=== PATIENT | female | born 1970 | race African-American/Black ===

== ENCOUNTER 2022-11-06 21:00 | Inpatient (IN) | payer MEDICAID ==
[~2022-11-06] VITALS: Ht 157.5 cm; Wt 59.0 kg
[2022-11-06 21:00] VITALS: BP 104/72; PULSE 87; PULSE 88; RESP 18; RESP 20; TEMP 97.5
[~2022-11-06 21:00] MED LIST: CLON0.2T PO; HYDR25TA MT; METO-539 PO
[2022-11-06] MEDS ORDERED: SENNOSIDES 8.6MG TABLET PO PRN (23:45)
[2022-11-07] MEDS ORDERED: MAGNESIUM HYDROXIDE 400MG/5ML 30ML UDC PO PRN (00:15)
[2022-11-07] MEDS ORDERED: MAGNESIUM/ALUMINUM HYDROXIDE/SIMETHICONE 30ML UDC PO PRN (00:15)
[2022-11-07] MEDS ORDERED: BISACODYL 10MG SUPP PR PRN (00:15)
[2022-11-07] MEDS: SENNOSIDES 8.6MG TABLET PO SCH ×2 (00:15→21:45)
[2022-11-07] MEDS ORDERED: ACETAMINOPHEN 325MG TABLET PO PRN (00:15)
[2022-11-07] MEDS ORDERED: ONDANSETRON HCL 4MG/2ML INJ IV PRN (00:15)
[2022-11-07] MEDS ORDERED: IPRATROPIUM/ALBUTEROL 0.5-3(2.5)MG/3ML NEB HHN PRN (00:15)
[2022-11-07] MEDS: LEVETIRACETAM 500MG TABLET PO SCH ×3 (00:30→21:45)
[2022-11-07 06:44] LABS: BASOPHILS % 0.3 % (0.0-2.0); EOSINOPHILS % 2.4 % (0.0-5.0); HEMATOCRIT. 31.1 % (36.0-48.0); HEMOGLOBIN. 10.6 g/dL (12.0-16.0); MEAN CORPUSCULAR HEMOGLOBIN 35.5 pg (28.0-32.0); MEAN CORPUSCULAR VOLUME 104.3 fL (81.0-99.0); MEAN PLATELET VOLUME 10.3 fl (7.4-10.4); MONOCYTES % 11.2 % (2.0-8.0); NEUTROPHILS % 48.1 % (40.0-76.0); PLATELET 326 x1000/uL (130-400); RED BLOOD CELL COUNT 2.98 mill/uL (4.2-5.4); RED CELL DISTRIBUTION WIDTH 14.7 % (11.6-14.6)
[2022-11-07] MEDS: LANSOPRAZOLE 30MG DR CAPSULE PO SCH (06:44)
[2022-11-07] MEDS ORDERED: LANSOPRAZOLE 30MG DR CAPSULE NG SCH (07:00)
[2022-11-07 07:43] LABS: CHLORIDE 102 mEq/L (98-107)
[2022-11-07 08:00] VITALS: BP 104/67; PULSE 84; RESP 20; TEMP 97.4
[2022-11-07] MEDS: HYDRALAZINE HCL 25MG TABLET PO SCH (09:00)
[2022-11-07] MEDS: BACITRACIN 15GM TUBE TOP SCH ×2 (09:00→17:00)
[2022-11-07] MEDS: METOPROLOL TARTRATE 50MG TABLET PO SCH ×2 (09:00→21:46)
[2022-11-07] MEDS: ENOXAPARIN 40MG/0.4ML SYR SUBCUT SCH (09:00)
[2022-11-07] MEDS: POLYETHYLENE GLYCOL 3350 (17GM) 1 DOSE PACK PO SCH (09:00)
[2022-11-07] MEDS: LORATADINE 10MG TABLET PO SCH (09:31)
[2022-11-07] MEDS: MULTIVITAMINS,THER W-MINERALS TABLET PO SCH (09:31)
[2022-11-07 20:07] VITALS: BP 157/87; PULSE 94; RESP 20; TEMP 97.5
[2022-11-08] MEDS: LANSOPRAZOLE 30MG DR CAPSULE PO SCH (06:30)
[2022-11-08 08:00] VITALS: BP 110/86; PULSE 112; RESP 17; TEMP 97.6
[2022-11-08] MEDS: BACITRACIN 15GM TUBE TOP SCH ×2 (09:00→17:00)
[2022-11-08] MEDS: POLYETHYLENE GLYCOL 3350 (17GM) 1 DOSE PACK PO SCH (09:00)
[2022-11-08] MEDS: LEVETIRACETAM 500MG TABLET PO SCH ×2 (09:24→21:19)
[2022-11-08] MEDS: MULTIVITAMINS,THER W-MINERALS TABLET PO SCH (09:24)
[2022-11-08] MEDS: HYDRALAZINE HCL 25MG TABLET PO SCH (09:24)
[2022-11-08] MEDS: LORATADINE 10MG TABLET PO SCH (09:24)
[2022-11-08] MEDS: METOPROLOL TARTRATE 50MG TABLET PO SCH ×2 (09:24→21:00)
[2022-11-08] MEDS ORDERED: BISACODYL 10MG SUPP PR PRN (12:15)
[2022-11-08 20:25] VITALS: BP 108/69; PULSE 88; RESP 20; TEMP 97.2
[2022-11-08] MEDS: SENNOSIDES 8.6MG TABLET PO SCH (21:19)
[2022-11-09 08:00] VITALS: BP 110/70; PULSE 98; RESP 18; TEMP 97.7
[2022-11-09] MEDS: LORATADINE 10MG TABLET PO SCH (08:26)
[2022-11-09] MEDS: METOPROLOL TARTRATE 50MG TABLET PO SCH ×2 (08:26→21:00)
[2022-11-09] MEDS: LEVETIRACETAM 500MG TABLET PO SCH ×2 (08:26→21:12)
[2022-11-09] MEDS: HYDRALAZINE HCL 25MG TABLET PO SCH (08:26)
[2022-11-09] MEDS: POLYETHYLENE GLYCOL 3350 (17GM) 1 DOSE PACK PO SCH (08:27)
[2022-11-09] MEDS: MULTIVITAMINS,THER W-MINERALS TABLET PO SCH (08:31)
[2022-11-09] MEDS: FAMOTIDINE 20MG TABLET PO SCH ×2 (08:31→21:12)
[2022-11-09] MEDS: BACITRACIN 15GM TUBE TOP SCH ×2 (08:32→16:33)
[2022-11-09 20:00] VITALS: BP 108/66; PULSE 88; RESP 18; TEMP 97
[2022-11-09] MEDS: SENNOSIDES 8.6MG TABLET PO SCH (21:12)
[2022-11-10 08:00] VITALS: BP 111/65; PULSE 87; RESP 18; TEMP 97.4
[2022-11-10] MEDS: METOPROLOL TARTRATE 50MG TABLET PO SCH ×2 (09:00→21:19)
[2022-11-10] MEDS: HYDRALAZINE HCL 25MG TABLET PO SCH (09:00)
[2022-11-10] MEDS: POLYETHYLENE GLYCOL 3350 (17GM) 1 DOSE PACK PO SCH (09:02)
[2022-11-10] MEDS: FAMOTIDINE 20MG TABLET PO SCH ×2 (09:02→21:20)
[2022-11-10] MEDS: LEVETIRACETAM 500MG TABLET PO SCH ×2 (09:02→21:20)
[2022-11-10] MEDS: BACITRACIN 15GM TUBE TOP SCH ×2 (09:08→16:53)
[2022-11-10] MEDS: MULTIVITAMINS,THER W-MINERALS TABLET PO SCH (09:09)
[2022-11-10] MEDS: LORATADINE 10MG TABLET PO SCH (09:09)
[2022-11-10 20:00] VITALS: BP 117/82; PULSE 93; RESP 18; TEMP 98.2
[2022-11-10] MEDS: SENNOSIDES 8.6MG TABLET PO SCH (21:00)
[2022-11-11 08:00] VITALS: BP 117/74; PULSE 93; RESP 18; TEMP 97.3
[2022-11-11] MEDS: POLYETHYLENE GLYCOL 3350 (17GM) 1 DOSE PACK PO SCH (09:00)
[2022-11-11] MEDS: LORATADINE 10MG TABLET PO SCH (09:21)
[2022-11-11] MEDS: HYDRALAZINE HCL 25MG TABLET PO SCH (09:21)
[2022-11-11] MEDS: METOPROLOL TARTRATE 50MG TABLET PO SCH ×2 (09:21→20:45)
[2022-11-11] MEDS: FAMOTIDINE 20MG TABLET PO SCH ×2 (09:21→20:45)
[2022-11-11] MEDS: LEVETIRACETAM 500MG TABLET PO SCH ×2 (09:22→20:45)
[2022-11-11] MEDS: MULTIVITAMINS,THER W-MINERALS TABLET PO SCH (09:22)
[2022-11-11] MEDS: BACITRACIN 15GM TUBE TOP SCH ×2 (09:25→17:13)
[2022-11-11 20:00] VITALS: BP 116/70; PULSE 83; RESP 19; TEMP 97.7
[2022-11-11] MEDS: SENNOSIDES 8.6MG TABLET PO SCH (20:45)
[2022-11-11 21:35] VITALS: TEMP 98.1
[2022-11-12 08:00] VITALS: BP 104/65; PULSE 74; RESP 20; TEMP 97.4
[2022-11-12] MEDS: HYDRALAZINE HCL 25MG TABLET PO SCH (08:18)
[2022-11-12] MEDS: METOPROLOL TARTRATE 50MG TABLET PO SCH ×2 (08:18→22:03)
[2022-11-12] MEDS: MULTIVITAMINS,THER W-MINERALS TABLET PO SCH (08:21)
[2022-11-12] MEDS: FAMOTIDINE 20MG TABLET PO SCH ×2 (08:21→22:02)
[2022-11-12] MEDS: LEVETIRACETAM 500MG TABLET PO SCH ×2 (08:21→22:04)
[2022-11-12] MEDS: LORATADINE 10MG TABLET PO SCH (08:21)
[2022-11-12] MEDS: POLYETHYLENE GLYCOL 3350 (17GM) 1 DOSE PACK PO SCH (08:22)
[2022-11-12] MEDS: BACITRACIN 15GM TUBE TOP SCH ×2 (08:23→16:25)
[2022-11-12 20:00] VITALS: BP 112/72; PULSE 87; RESP 16; TEMP 97.3
[2022-11-12] MEDS: SENNOSIDES 8.6MG TABLET PO SCH (22:02)
[2022-11-13 08:00] VITALS: BP 110/66; PULSE 51; RESP 17; TEMP 97.5
[2022-11-13] MEDS: HYDRALAZINE HCL 25MG TABLET PO SCH (08:54)
[2022-11-13] MEDS: MULTIVITAMINS,THER W-MINERALS TABLET PO SCH (08:54)
[2022-11-13] MEDS: LORATADINE 10MG TABLET PO SCH (08:54)
[2022-11-13] MEDS: FAMOTIDINE 20MG TABLET PO SCH ×2 (08:54→21:24)
[2022-11-13] MEDS: LEVETIRACETAM 500MG TABLET PO SCH ×2 (08:54→21:23)
[2022-11-13] MEDS: POLYETHYLENE GLYCOL 3350 (17GM) 1 DOSE PACK PO SCH (08:55)
[2022-11-13] MEDS: BACITRACIN 15GM TUBE TOP SCH ×2 (08:55→16:38)
[2022-11-13] MEDS: METOPROLOL TARTRATE 50MG TABLET PO SCH ×2 (08:55→21:23)
[2022-11-13 20:00] VITALS: BP 111/66; PULSE 72; RESP 18; TEMP 97.7
[2022-11-13] MEDS: SENNOSIDES 8.6MG TABLET PO SCH (21:23)
[2022-11-14 08:00] VITALS: BP 97/56; PULSE 79; RESP 20; TEMP 97.5
[2022-11-14] MEDS: LORATADINE 10MG TABLET PO SCH (08:45)
[2022-11-14] MEDS: LEVETIRACETAM 500MG TABLET PO SCH ×2 (08:45→21:48)
[2022-11-14] MEDS: MULTIVITAMINS,THER W-MINERALS TABLET PO SCH (08:45)
[2022-11-14] MEDS: FAMOTIDINE 20MG TABLET PO SCH ×2 (08:45→21:48)
[2022-11-14] MEDS: HYDRALAZINE HCL 25MG TABLET PO SCH (08:46)
[2022-11-14] MEDS: METOPROLOL TARTRATE 50MG TABLET PO SCH ×2 (08:47→21:00)
[2022-11-14] MEDS: POLYETHYLENE GLYCOL 3350 (17GM) 1 DOSE PACK PO SCH (08:48)
[2022-11-14] MEDS: BACITRACIN 15GM TUBE TOP SCH ×2 (08:49→17:00)
[2022-11-14] MEDS: ENOXAPARIN 40MG/0.4ML SYR SUBCUT SCH (08:49)
[2022-11-14 20:00] VITALS: BP 108/67; PULSE 88; RESP 17; TEMP 97.9
[2022-11-14] MEDS: SENNOSIDES 8.6MG TABLET PO SCH (21:48)
[2022-11-15 07:33] LABS: BASOPHILS % 0.4 % (0.0-2.0); EOSINOPHILS % 3.8 % (0.0-5.0); HEMATOCRIT. 27.9 % (36.0-48.0); HEMOGLOBIN. 9.5 g/dL (12.0-16.0); LYMPHOCYTES % 48.7 % (20.0-50.0); MEAN CORPUSCULAR HEMOGLOBIN 34.7 pg (28.0-32.0); MEAN PLATELET VOLUME 10.4 fl (7.4-10.4); MONOCYTES % 9.9 % (2.0-8.0); NEUTROPHILS % 37.2 % (40.0-76.0); PLATELET 169 x1000/uL (130-400); RED BLOOD CELL COUNT 2.73 mill/uL (4.2-5.4); RED CELL DISTRIBUTION WIDTH 14.7 % (11.6-14.6)
[2022-11-15 08:00] VITALS: BP 112/77; PULSE 102; RESP 18; TEMP 97.5
[2022-11-15 08:17] LABS: CHLORIDE 104 mEq/L (98-107)
[2022-11-15] MEDS: LEVETIRACETAM 500MG TABLET PO SCH ×2 (08:59→21:20)
[2022-11-15] MEDS: FAMOTIDINE 20MG TABLET PO SCH ×2 (08:59→21:20)
[2022-11-15] MEDS: LORATADINE 10MG TABLET PO SCH (08:59)
[2022-11-15] MEDS: MULTIVITAMINS,THER W-MINERALS TABLET PO SCH (08:59)
[2022-11-15] MEDS: METOPROLOL TARTRATE 50MG TABLET PO SCH ×2 (09:00→21:00)
[2022-11-15] MEDS: BACITRACIN 15GM TUBE TOP SCH ×2 (09:00→17:00)
[2022-11-15] MEDS ORDERED: POTASSIUM CHLORIDE 20MEQ TABLET SR PO NR (09:00)
[2022-11-15] MEDS: HYDRALAZINE HCL 25MG TABLET PO SCH (09:00)
[2022-11-15] MEDS: POLYETHYLENE GLYCOL 3350 (17GM) 1 DOSE PACK PO SCH (09:01)
[2022-11-15] MEDS: ENOXAPARIN 40MG/0.4ML SYR SUBCUT SCH (09:01)
[2022-11-15 19:49] VITALS: BP 106/61; PULSE 85; RESP 20; TEMP 97.7
[2022-11-15] MEDS: SENNOSIDES 8.6MG TABLET PO SCH (21:00)
[2022-11-16 06:30] VITALS: PULSE 85; RESP 20
[2022-11-16 08:00] VITALS: BP 113/66; PULSE 84; RESP 18; TEMP 97.5
[2022-11-16] MEDS: BACITRACIN 15GM TUBE TOP SCH ×2 (09:00→17:00)
[2022-11-16] MEDS: HYDRALAZINE HCL 25MG TABLET PO SCH (09:20)
[2022-11-16] MEDS: MULTIVITAMINS,THER W-MINERALS TABLET PO SCH (09:20)
[2022-11-16] MEDS: LEVETIRACETAM 500MG TABLET PO SCH ×2 (09:20→20:52)
[2022-11-16] MEDS: FAMOTIDINE 20MG TABLET PO SCH ×2 (09:20→20:52)
[2022-11-16] MEDS: LORATADINE 10MG TABLET PO SCH (09:20)
[2022-11-16] MEDS: POLYETHYLENE GLYCOL 3350 (17GM) 1 DOSE PACK PO SCH (09:20)
[2022-11-16] MEDS: ENOXAPARIN 40MG/0.4ML SYR SUBCUT SCH (09:21)
[2022-11-16] MEDS: METOPROLOL TARTRATE 50MG TABLET PO SCH ×2 (09:21→20:52)
[2022-11-16 20:06] VITALS: BP 99/69; PULSE 89; RESP 20; TEMP 97.9
[2022-11-16] MEDS: SENNOSIDES 8.6MG TABLET PO SCH (20:52)
[2022-11-17 08:00] VITALS: BP 110/78; PULSE 98; RESP 18; TEMP 98.1
[2022-11-17] MEDS: HYDRALAZINE HCL 25MG TABLET PO SCH (09:00)
[2022-11-17] MEDS: POLYETHYLENE GLYCOL 3350 (17GM) 1 DOSE PACK PO SCH (09:00)
[2022-11-17] MEDS: LORATADINE 10MG TABLET PO SCH (09:00)
[2022-11-17] MEDS: METOPROLOL TARTRATE 50MG TABLET PO SCH ×2 (09:00→21:26)
[2022-11-17] MEDS: BACITRACIN 15GM TUBE TOP SCH ×2 (09:00→17:00)
[2022-11-17] MEDS: LEVETIRACETAM 500MG TABLET PO SCH ×2 (09:00→21:25)
[2022-11-17] MEDS: MULTIVITAMINS,THER W-MINERALS TABLET PO SCH (09:00)
[2022-11-17] MEDS: ENOXAPARIN 40MG/0.4ML SYR SUBCUT SCH (09:00)
[2022-11-17] MEDS: FAMOTIDINE 20MG TABLET PO SCH ×2 (09:00→21:25)
[2022-11-17 09:04] LABS: HEMATOCRIT 29.9 % (36.0-48.0); HEMOGLOBIN 10.1 g/dL (12.0-16.0); MEAN CORPUSCULAR HEMOGLOBIN 34.6 pg (28.0-32.0); MEAN CORPUSCULAR VOLUME 102.2 fL (81.0-99.0); PLATELET 167 x1000/uL (130-400); RED BLOOD CELL COUNT 2.92 mill/uL (4.2-5.4); RED CELL DISTRIBUTION WIDTH 15.5 % (11.6-14.6)
[2022-11-17 09:21] LABS: CHLORIDE 105 mEq/L (98-107)
[2022-11-17 09:26] LABS: PHOSPHORUS 4.6 mg/dL (2.5-4.9)
[2022-11-17] MEDS: MAGNESIUM OXIDE 400MG TABLET PO SCH (17:57)
[2022-11-17 20:00] VITALS: BP 122/85; PULSE 66; RESP 16; TEMP 98.1
[2022-11-17] MEDS: SENNOSIDES 8.6MG TABLET PO SCH (21:00)
[2022-11-18 08:00] VITALS: BP 100/64; PULSE 91; RESP 20; TEMP 97.7
[2022-11-18] MEDS: POLYETHYLENE GLYCOL 3350 (17GM) 1 DOSE PACK PO SCH (09:00)
[2022-11-18] MEDS: METOPROLOL TARTRATE 50MG TABLET PO SCH ×2 (09:00→21:00)
[2022-11-18] MEDS: HYDRALAZINE HCL 25MG TABLET PO SCH (09:00)
[2022-11-18] MEDS: FAMOTIDINE 20MG TABLET PO SCH ×2 (09:58→21:28)
[2022-11-18] MEDS: LEVETIRACETAM 500MG TABLET PO SCH ×2 (09:58→21:28)
[2022-11-18] MEDS: MULTIVITAMINS,THER W-MINERALS TABLET PO SCH (09:58)
[2022-11-18] MEDS: MAGNESIUM OXIDE 400MG TABLET PO SCH (09:58)
[2022-11-18] MEDS: LORATADINE 10MG TABLET PO SCH (09:58)
[2022-11-18] MEDS: ENOXAPARIN 40MG/0.4ML SYR SUBCUT SCH (10:05)
[2022-11-18] MEDS: BACITRACIN 15GM TUBE TOP SCH ×2 (10:07→17:08)
[2022-11-18 13:06] LABS: CHLORIDE 104 mEq/L (98-107)
[2022-11-18 13:14] LABS: PHOSPHORUS 4.4 mg/dL (2.5-4.9)
[2022-11-18 20:00] VITALS: BP 106/68; PULSE 90; RESP 18; TEMP 98.8
[2022-11-18] MEDS: SENNOSIDES 8.6MG TABLET PO SCH (21:00)
[2022-11-19 07:55] VITALS: BP 105/65; PULSE 83; RESP 20; TEMP 98.3
[2022-11-19] MEDS: MULTIVITAMINS,THER W-MINERALS TABLET PO SCH (09:00)
[2022-11-19] MEDS: MAGNESIUM OXIDE 400MG TABLET PO SCH (09:00)
[2022-11-19] MEDS: LORATADINE 10MG TABLET PO SCH (09:00)
[2022-11-19] MEDS: METOPROLOL TARTRATE 50MG TABLET PO SCH ×2 (09:00→21:00)
[2022-11-19] MEDS: HYDRALAZINE HCL 25MG TABLET PO SCH (09:00)
[2022-11-19] MEDS: POLYETHYLENE GLYCOL 3350 (17GM) 1 DOSE PACK PO SCH (09:00)
[2022-11-19] MEDS: LEVETIRACETAM 500MG TABLET PO SCH ×2 (09:00→21:37)
[2022-11-19] MEDS: BACITRACIN 15GM TUBE TOP SCH ×2 (09:00→16:46)
[2022-11-19] MEDS: ENOXAPARIN 40MG/0.4ML SYR SUBCUT SCH (09:00)
[2022-11-19] MEDS: FAMOTIDINE 20MG TABLET PO SCH ×2 (09:00→21:37)
[2022-11-19 20:17] VITALS: BP 108/75; PULSE 95; RESP 20; TEMP 97.7
[2022-11-19] MEDS: SENNOSIDES 8.6MG TABLET PO SCH (21:37)
[2022-11-20 08:00] VITALS: BP 115/71; PULSE 89; RESP 18; TEMP 98.4
[2022-11-20] MEDS: POLYETHYLENE GLYCOL 3350 (17GM) 1 DOSE PACK PO SCH (10:26)
[2022-11-20] MEDS: BACITRACIN 15GM TUBE TOP SCH ×2 (10:26→18:43)
[2022-11-20] MEDS: HYDRALAZINE HCL 25MG TABLET PO SCH (10:27)
[2022-11-20] MEDS: LEVETIRACETAM 500MG TABLET PO SCH ×2 (10:27→21:33)
[2022-11-20] MEDS: LORATADINE 10MG TABLET PO SCH (10:27)
[2022-11-20] MEDS: MULTIVITAMINS,THER W-MINERALS TABLET PO SCH (10:28)
[2022-11-20] MEDS: METOPROLOL TARTRATE 50MG TABLET PO SCH ×2 (10:28→21:00)
[2022-11-20] MEDS: FAMOTIDINE 20MG TABLET PO SCH ×2 (10:28→21:33)
[2022-11-20] MEDS: ENOXAPARIN 40MG/0.4ML SYR SUBCUT SCH (10:53)
[2022-11-20 20:00] VITALS: BP 94/56; PULSE 56; RESP 17; TEMP 99
[2022-11-20] MEDS: SENNOSIDES 8.6MG TABLET PO SCH (21:33)
[2022-11-21 07:04] LABS: BASOPHILS % 0.4 % (0.0-2.0); EOSINOPHILS % 3.1 % (0.0-5.0); HEMATOCRIT. 28.9 % (36.0-48.0); LYMPHOCYTES % 42.6 % (20.0-50.0); MEAN CORPUSCULAR HEMOGLOBIN 34.6 pg (28.0-32.0); MEAN PLATELET VOLUME 10.2 fl (7.4-10.4); MONOCYTES % 9.5 % (2.0-8.0); NEUTROPHILS % 44.4 % (40.0-76.0); PLATELET 156 x1000/uL (130-400); RED BLOOD CELL COUNT 2.89 mill/uL (4.2-5.4); RED CELL DISTRIBUTION WIDTH 15.2 % (11.6-14.6)
[2022-11-21 08:00] VITALS: BP 118/78; PULSE 99; RESP 18; TEMP 98.6
[2022-11-21] MEDS: BACITRACIN 15GM TUBE TOP SCH ×2 (09:00→17:27)
[2022-11-21] MEDS: MULTIVITAMINS,THER W-MINERALS TABLET PO SCH (09:01)
[2022-11-21] MEDS: HYDRALAZINE HCL 25MG TABLET PO SCH (09:01)
[2022-11-21] MEDS: ENOXAPARIN 40MG/0.4ML SYR SUBCUT SCH (09:01)
[2022-11-21] MEDS: LORATADINE 10MG TABLET PO SCH (09:02)
[2022-11-21] MEDS: FAMOTIDINE 20MG TABLET PO SCH ×2 (09:02→20:25)
[2022-11-21] MEDS: METOPROLOL TARTRATE 50MG TABLET PO SCH ×2 (09:02→20:25)
[2022-11-21] MEDS: LEVETIRACETAM 500MG TABLET PO SCH ×2 (09:02→20:25)
[2022-11-21] MEDS: POLYETHYLENE GLYCOL 3350 (17GM) 1 DOSE PACK PO SCH (09:03)
[2022-11-21 19:50] VITALS: BP 101/63; PULSE 90; RESP 20; TEMP 97.7
[2022-11-21] MEDS: SENNOSIDES 8.6MG TABLET PO SCH (20:25)
[2022-11-22 08:00] VITALS: BP 127/84; PULSE 111; RESP 18; TEMP 98.3
[2022-11-22] MEDS: BACITRACIN 15GM TUBE TOP SCH ×2 (09:00→17:00)
[2022-11-22] MEDS: POLYETHYLENE GLYCOL 3350 (17GM) 1 DOSE PACK PO SCH (09:00)
[2022-11-22] MEDS: FAMOTIDINE 20MG TABLET PO SCH ×2 (09:13→21:07)
[2022-11-22] MEDS: LORATADINE 10MG TABLET PO SCH (09:14)
[2022-11-22] MEDS: MULTIVITAMINS,THER W-MINERALS TABLET PO SCH (09:14)
[2022-11-22] MEDS: ENOXAPARIN 40MG/0.4ML SYR SUBCUT SCH (09:14)
[2022-11-22] MEDS: LEVETIRACETAM 500MG TABLET PO SCH ×2 (09:14→21:07)
[2022-11-22] MEDS: HYDRALAZINE HCL 25MG TABLET PO SCH (09:15)
[2022-11-22] MEDS: METOPROLOL TARTRATE 50MG TABLET PO SCH ×2 (09:15→21:08)
[2022-11-22 20:08] VITALS: BP 126/81; PULSE 88; RESP 20; TEMP 97.8
[2022-11-22] MEDS: SENNOSIDES 8.6MG TABLET PO SCH (21:00)
[2022-11-23 08:00] VITALS: BP 101/51; PULSE 85; RESP 18; TEMP 98.2
[2022-11-23] MEDS: HYDRALAZINE HCL 25MG TABLET PO SCH (08:18)
[2022-11-23] MEDS: METOPROLOL TARTRATE 50MG TABLET PO SCH ×2 (08:18→22:05)
[2022-11-23] MEDS: LORATADINE 10MG TABLET PO SCH (08:19)
[2022-11-23] MEDS: POLYETHYLENE GLYCOL 3350 (17GM) 1 DOSE PACK PO SCH (08:19)
[2022-11-23] MEDS: FAMOTIDINE 20MG TABLET PO SCH ×2 (08:19→22:06)
[2022-11-23] MEDS: MULTIVITAMINS,THER W-MINERALS TABLET PO SCH (08:19)
[2022-11-23] MEDS: LEVETIRACETAM 500MG TABLET PO SCH ×2 (08:19→22:05)
[2022-11-23] MEDS: ENOXAPARIN 40MG/0.4ML SYR SUBCUT SCH (08:20)
[2022-11-23] MEDS: BACITRACIN 15GM TUBE TOP SCH ×2 (09:00→17:14)
[2022-11-23] MEDS ORDERED: METO-539 PO (13:28)
[2022-11-23] MEDS ORDERED: CLAR10 PO (13:28)
[2022-11-23] MEDS ORDERED: KEPP500 PO (13:28)
[2022-11-23 20:00] VITALS: BP 106/67; PULSE 102; RESP 17; TEMP 98.8
[2022-11-23] MEDS: SENNOSIDES 8.6MG TABLET PO SCH (21:00)
[2022-11-24 08:00] VITALS: BP 112/79; PULSE 90; RESP 18; TEMP 97.6
[2022-11-24] MEDS: MULTIVITAMINS,THER W-MINERALS TABLET PO SCH (09:45)
[2022-11-24] MEDS: LEVETIRACETAM 500MG TABLET PO SCH (09:45)
[2022-11-24] MEDS: FAMOTIDINE 20MG TABLET PO SCH (09:46)
[2022-11-24] MEDS: METOPROLOL TARTRATE 50MG TABLET PO SCH (09:46)
[2022-11-24] MEDS: LORATADINE 10MG TABLET PO SCH (09:46)
[2022-11-24] MEDS: HYDRALAZINE HCL 25MG TABLET PO SCH (09:46)
[2022-11-24] MEDS: ENOXAPARIN 40MG/0.4ML SYR SUBCUT SCH (09:53)
[2022-11-24] MEDS: BACITRACIN 15GM TUBE TOP SCH (10:00)
[2022-11-24] MEDS: POLYETHYLENE GLYCOL 3350 (17GM) 1 DOSE PACK PO SCH (10:00)
[2022-11-24 10:35] VITALS: BP 112/79; PULSE 90; TEMP 97.6; O2SAT 100
== END 2022-11-24 11:10 | disposition home health service (06) | DRG 44 ==
PROVIDERS: ADMIT Psychiatry & Neurology Neurology; ATTEND Hospitalist
PROC: 4A00X4Z Measurement of Central Nervous Electrical Activity, External Approach (ICD-10-PCS; principal; 2022-11-08)
DX: I62.01 Nontraumatic acute subdural hemorrhage (principal); D69.6 Thrombocytopenia, unspecified; E44.1 Mild protein-calorie malnutrition; D63.8 Anemia in other chronic diseases classified elsewhere; R56.9 Unspecified convulsions; I69.291 Dysphagia following other nontraumatic intracranial hemorrhage; I10 Essential (primary) hypertension; E78.5 Hyperlipidemia, unspecified; E87.6 Hypokalemia; R41.4 Neurologic neglect syndrome; D72.829 Elevated white blood cell count, unspecified; R74.01 Elevation of levels of liver transaminase levels; R26.9 Unspecified abnormalities of gait and mobility; R73.9 Hyperglycemia, unspecified; D53.9 Nutritional anemia, unspecified; E83.42 Hypomagnesemia; M47.9 Spondylosis, unspecified; Z79.899 Other long term (current) drug therapy; Z85.118 Personal history of other malignant neoplasm of bronchus and lung; Z91.81 History of falling; Z68.23 Body mass index [BMI] 23.0-23.9, adult
CPT/HCPCS: 36415; 76700; 80048; 80053; 83735; 84100; 85025; 85027; 92523; 92610; 93970; 95816; 97110; 97112; 97116; 97150; 97162; 97166; 97530; 97535; 97542; A6261; J1650; J2405